=== PATIENT | female | born 1995 | race Caucasian/White ===

== ENCOUNTER 2018-05-22 15:20 | Outpatient (CLI) | payer OTHER ==
[2018-05-22 16:03] LABS: ADD MAN DIFF? NO
[2018-05-22 16:06] LABS: BASOPHILS % 0.4 % (0.0-2.0); EOSINOPHILS # 0.6 10^3/ul (0.0-0.5); HEMATOCRIT 37.2 % (37.0-47.0); LYMPHOCYTES # 1.8 10^3/ul (0.8-2.9); LYMPHOCYTES % 19.9 % (18.0-55.0); MEAN CORPUSCULAR HEMOGLOBIN 26.8 pg (29.0-33.0); MEAN CORPUSCULAR HGB CONC 32.3 g/dl (32.0-37.0); MEAN CORPUSCULAR VOLUME 83.2 fl (72.0-104.0); MEAN PLATELET VOLUME 9.6 fl (7.4-10.4); MONOCYTE # 0.9 10^3/ul (0.3-0.9); MONOCYTES % 10.2 % (0.0-13.0); NEUTROPHIL # 5.8 10^3/ul (1.6-7.5); NEUTROPHILS % 62.3 % (30.0-74.0); PLATELET COUNT 281 10^3/UL (140-415); RED BLOOD COUNT 4.47 10^6/ul (4.20-5.40)
[2018-05-22 16:06] LABS: WHITE BLOOD COUNT 9.2 10^3/ul (4.8-10.8)
[2018-05-22 16:17] LABS: ADD UMIC NO; UR ASCORBIC ACID 40 mg/dL (NEGATIVE); UR BACTERIA FEW /HPF (NONE SEEN); UR BILIRUBIN (Dip) NEGATIVE (NEGATIVE); UR BLOOD (Dip) NEGATIVE (NEGATIVE); UR CLARITY SLIGHTLY CLOUDY (CLEAR); UR COLOR YELLOW (YELLOW); UR GLUCOSE (Dip) 1+ mg/dL (NEGATIVE); UR KETONES (Dip) NEGATIVE (NEGATIVE); UR LEUKOCYTE ESTERASE (Dip) NEGATIVE Leu/ul (NEGATIVE); UR MUCUS FEW /HPF (NONE SEEN); UR NITRITE (Dip) NEGATIVE (NEGATIVE); UR RBC 0 /HPF (0-5); UR SPECIFIC GRAVITY (Dip) 1.023 (1.003-1.030); UR SQUAMOUS EPITHELIAL CELL FEW /HPF (FEW); UR TOTAL PROTEIN (Dip) NEGATIVE (NEGATIVE); UR UROBILINOGEN (Dip) NEGATIVE (NEGATIVE); UR WBC 2 /HPF (0-5)
== END 2018-05-22 17:20 | disposition home or self-care (01) ==
LOC: OBT 15:20 → L-D 15:21 → OBT 17:20
DX: O26.893 Other specified pregnancy related conditions, third trimester (principal); Z3A.29 29 weeks gestation of pregnancy; R10.2 Pelvic and perineal pain
CPT/HCPCS: 76815; 76817; 76818; 81001; 81003; 85025

== ENCOUNTER 2018-06-03 11:35 | Outpatient (CLI) | payer OTHER ==
[2018-06-03] MEDS: LACTATED RINGER'S 1,000 ML IV* (14:11)
[2018-06-03 14:34] LABS: ADD MAN DIFF? NO
[2018-06-03 14:36] LABS: BASOPHILS % 0.5 % (0.0-2.0); EOSINOPHILS # 0.4 10^3/ul (0.0-0.5); EOSINOPHILS % 4.8 % (0.0-7.0); HEMATOCRIT 37.8 % (37.0-47.0); HEMOGLOBIN 12.3 g/dl (12.0-16.0); LYMPHOCYTES # 1.5 10^3/ul (0.8-2.9); LYMPHOCYTES % 18.8 % (18.0-55.0); MEAN CORPUSCULAR HEMOGLOBIN 26.9 pg (29.0-33.0); MEAN CORPUSCULAR HGB CONC 32.5 g/dl (32.0-37.0); MEAN CORPUSCULAR VOLUME 82.5 fl (72.0-104.0); MEAN PLATELET VOLUME 9.9 fl (7.4-10.4); MONOCYTE # 0.8 10^3/ul (0.3-0.9); MONOCYTES % 9.7 % (0.0-13.0); NEUTROPHIL # 5.3 10^3/ul (1.6-7.5); NEUTROPHILS % 65.3 % (30.0-74.0); PLATELET COUNT 295 10^3/UL (140-415); RED BLOOD COUNT 4.58 10^6/ul (4.20-5.40); RED CELL DISTRIBUTION WIDTH 13.9 % (11.5-14.5)
[2018-06-03 14:36] LABS: WHITE BLOOD COUNT 8.2 10^3/ul (4.8-10.8)
[2018-06-03 15:27] LABS: ADD UMIC YES; UR AMORPHOUS CRYSTAL FEW /HPF (NONE SEEN); UR ASCORBIC ACID 40 mg/dL (NEGATIVE); UR BILIRUBIN (Dip) NEGATIVE (NEGATIVE); UR BLOOD (Dip) NEGATIVE (NEGATIVE); UR CLARITY CLOUDY (CLEAR); UR COLOR YELLOW (YELLOW); UR GLUCOSE (Dip) NEGATIVE (NEGATIVE); UR KETONES (Dip) NEGATIVE (NEGATIVE); UR LEUKOCYTE ESTERASE (Dip) NEGATIVE Leu/ul (NEGATIVE); UR MUCUS FEW /HPF (NONE SEEN); UR NITRITE (Dip) NEGATIVE (NEGATIVE); UR RBC 0 /HPF (0-5); UR SPECIFIC GRAVITY (Dip) 1.015 (1.003-1.030); UR SQUAMOUS EPITHELIAL CELL FEW /HPF (FEW); UR TOTAL PROTEIN (Dip) NEGATIVE (NEGATIVE); UR UROBILINOGEN (Dip) NEGATIVE (NEGATIVE); UR WBC 3 /HPF (0-5)
[2018-06-03] MEDS: TERBUTALINE 1 MG/ML INJ SC ×2 (16:45→17:26)
== END 2018-06-03 18:45 | disposition home or self-care (01) ==
LOC: OBT 11:35 → L-D 11:35 → OBT 18:45
DX: O26.893 Other specified pregnancy related conditions, third trimester (principal); Z3A.31 31 weeks gestation of pregnancy; R10.2 Pelvic and perineal pain
CPT/HCPCS: 36415; 76815; 76817; 76818; 81001; 85025; 96360; 96361; 96372

== ENCOUNTER 2018-07-16 16:53 | Outpatient (CLI) | payer OTHER ==
[2018-07-16 17:58] LABS: ADD MAN DIFF? NO
[2018-07-16 18:16] LABS: BASOPHILS % 0.4 % (0.0-2.0); EOSINOPHILS # 0.4 10^3/ul (0.0-0.5); EOSINOPHILS % 5.3 % (0.0-7.0); HEMATOCRIT 38.5 % (37.0-47.0); HEMOGLOBIN 12.4 g/dl (12.0-16.0); LYMPHOCYTES # 1.6 10^3/ul (0.8-2.9); LYMPHOCYTES % 19.3 % (18.0-55.0); MEAN CORPUSCULAR HEMOGLOBIN 26.5 pg (29.0-33.0); MEAN CORPUSCULAR HGB CONC 32.2 g/dl (32.0-37.0); MEAN CORPUSCULAR VOLUME 82.3 fl (72.0-104.0); MEAN PLATELET VOLUME 10.3 fl (7.4-10.4); MONOCYTE # 0.7 10^3/ul (0.3-0.9); MONOCYTES % 8.9 % (0.0-13.0); NEUTROPHIL # 5.3 10^3/ul (1.6-7.5); NEUTROPHILS % 65.1 % (30.0-74.0); PLATELET COUNT 321 10^3/UL (140-415); RED BLOOD COUNT 4.68 10^6/ul (4.20-5.40); RED CELL DISTRIBUTION WIDTH 13.2 % (11.5-14.5)
[2018-07-16 18:16] LABS: WHITE BLOOD COUNT 8.1 10^3/ul (4.8-10.8)
[2018-07-16 18:44] LABS: ADD UMIC YES; UR ASCORBIC ACID NEGATIVE (NEGATIVE); UR BILIRUBIN (Dip) NEGATIVE (NEGATIVE); UR BLOOD (Dip) 2+ mg/dL (NEGATIVE); UR CLARITY CLEAR (CLEAR); UR COLOR YELLOW (YELLOW); UR GLUCOSE (Dip) NEGATIVE (NEGATIVE); UR KETONES (Dip) NEGATIVE (NEGATIVE); UR LEUKOCYTE ESTERASE (Dip) TRACE Leu/ul (NEGATIVE); UR MUCUS FEW /HPF (NONE SEEN); UR NITRITE (Dip) NEGATIVE (NEGATIVE); UR RBC 0 /HPF (0-5); UR SPECIFIC GRAVITY (Dip) 1.024 (1.003-1.030); UR SQUAMOUS EPITHELIAL CELL FEW /HPF (FEW); UR TOTAL PROTEIN (Dip) NEGATIVE (NEGATIVE); UR UROBILINOGEN (Dip) NEGATIVE (NEGATIVE); UR WBC 1 /HPF (0-5)
== END 2018-07-16 19:00 | disposition home or self-care (01) ==
LOC: OBT 16:53 → L-D 16:54 → OBT 19:00
DX: O47.1 False labor at or after 37 completed weeks of gestation (principal); Z3A.37 37 weeks gestation of pregnancy
CPT/HCPCS: 36415; 76815; 76818; 81001; 85025

== ENCOUNTER 2018-07-18 18:36 | Outpatient (CLI) | payer OTHER | END 2018-07-18 20:42 | disposition home or self-care (01) | LOC: OBT 18:36 → L-D 18:36 → OBT 20:42 | DX: O36.8330 Maternal care for abnormalities of the fetal heart rate or rhythm, third trimester, not applicable or unspecified (principal); Z3A.37 37 weeks gestation of pregnancy | CPT/HCPCS: 76818 ==

== ENCOUNTER 2018-07-20 18:43 | Outpatient (CLI) | payer OTHER | END 2018-07-20 20:59 | disposition home or self-care (01) | LOC: OBT 18:43 → L-D 18:44 → OBT 20:59 | DX: O36.8330 Maternal care for abnormalities of the fetal heart rate or rhythm, third trimester, not applicable or unspecified (principal); Z3A.38 38 weeks gestation of pregnancy | CPT/HCPCS: 76818 ==

== ENCOUNTER 2018-07-23 19:28 | Outpatient (CLI) | payer OTHER ==
[2018-07-23 20:17] LABS: ADD UMIC NO; UR ASCORBIC ACID 20 mg/dL (NEGATIVE); UR BILIRUBIN (Dip) NEGATIVE (NEGATIVE); UR BLOOD (Dip) NEGATIVE (NEGATIVE); UR CLARITY CLEAR (CLEAR); UR COLOR YELLOW (YELLOW); UR GLUCOSE (Dip) NEGATIVE (NEGATIVE); UR KETONES (Dip) TRACE mg/dL (NEGATIVE); UR LEUKOCYTE ESTERASE (Dip) NEGATIVE Leu/ul (NEGATIVE); UR NITRITE (Dip) NEGATIVE (NEGATIVE); UR SPECIFIC GRAVITY (Dip) 1.027 (1.003-1.030); UR TOTAL PROTEIN (Dip) NEGATIVE (NEGATIVE); UR UROBILINOGEN (Dip) NEGATIVE (NEGATIVE)
== END 2018-07-23 22:40 | disposition home or self-care (01) ==
LOC: OBT 19:28 → L-D 19:29 → OBT 22:40
DX: O62.9 Abnormality of forces of labor, unspecified (principal); Z3A.38 38 weeks gestation of pregnancy
CPT/HCPCS: 76815; 76818; 81003; 87086

== ENCOUNTER 2018-07-28 20:40 | Inpatient (IN) | payer OTHER ==
[2018-07-28] MEDS ORDERED: OXYTOCIN 30 UNITS/LR 500 ML IV (21:00)
[2018-07-28] MEDS ORDERED: CARBOPROST 250 MCG INJ IM (21:00)
[2018-07-28] MEDS ORDERED: LIDOCAINE 1% (MPF) 30 ML INJ INJ (21:00)
[2018-07-28] MEDS ORDERED: MISOPROSTOL 200 MCG TAB PR (21:00)
[2018-07-28] MEDS ORDERED: IBUPROFEN 600 MG TAB PO (21:00)
[2018-07-28] MEDS ORDERED: BUTORPHANOL 2 MG INJ IV (21:00)
[2018-07-28] MEDS ORDERED: METHYLERGONOVINE 0.2 MG INJ IM (21:00)
[2018-07-28 21:33] LABS: ADD MAN DIFF? NO
[2018-07-28 21:36] LABS: BASOPHILS % 0.3 % (0.0-2.0); EOSINOPHILS # 0.1 10^3/ul (0.0-0.5); EOSINOPHILS % 0.7 % (0.0-7.0); HEMATOCRIT 40.9 % (37.0-47.0); HEMOGLOBIN 13.2 g/dl (12.0-16.0); LYMPHOCYTES # 1.3 10^3/ul (0.8-2.9); LYMPHOCYTES % 9.5 % (18.0-55.0); MEAN CORPUSCULAR HEMOGLOBIN 26.2 pg (29.0-33.0); MEAN CORPUSCULAR HGB CONC 32.3 g/dl (32.0-37.0); MEAN CORPUSCULAR VOLUME 81.2 fl (72.0-104.0); MEAN PLATELET VOLUME 10.2 fl (7.4-10.4); MONOCYTE # 0.5 10^3/ul (0.3-0.9); MONOCYTES % 3.6 % (0.0-13.0); NEUTROPHIL # 11.4 10^3/ul (1.6-7.5); NEUTROPHILS % 85.1 % (30.0-74.0); PLATELET COUNT 303 10^3/UL (140-415); RED BLOOD COUNT 5.04 10^6/ul (4.20-5.40); RED CELL DISTRIBUTION WIDTH 14.2 % (11.5-14.5)
[2018-07-28 21:36] LABS: WHITE BLOOD COUNT 13.4 10^3/ul (4.8-10.8)
[2018-07-28] MEDS: LACTATED RINGER'S 1,000 ML IV ×2 (21:47→22:49)
[2018-07-28] MEDS: AMPICILLIN 2 GM/NS (PMX) 100 ML IV (21:47)
[2018-07-28 21:57] LABS: INR 0.88; PARTIAL THROMBOPLASTIN TIME 23.5 Sec (23.0-35.0); PT RATIO 0.9
[2018-07-28] MEDS ORDERED: NALOXONE (0.4 MG/ML) INJ IV (22:00)
[2018-07-28] MEDS ORDERED: FENTAnyl 2MCG/ML-ROPIV 0.2% 100 ML BAG EPI (22:00)
[2018-07-29] MEDS: AMPICILLIN 1 GM/NS (PMX) 50 ML IV (01:19)
[2018-07-29] MEDS: OXYTOCIN 30 UNITS/LR 500 ML IV ×2 (02:00→02:19)
[2018-07-29] MEDS ORDERED: DEXTROSE 5%-LR 1,000 ML IV (02:57)
[2018-07-29] MEDS ORDERED: ZOLPIDEM 5 MG TAB PO (03:00)
[2018-07-29] MEDS ORDERED: MISOPROSTOL 200 MCG TAB PR (03:00)
[2018-07-29] MEDS ORDERED: CARBOPROST 250 MCG INJ IM (03:00)
[2018-07-29] MEDS ORDERED: ACETAMINOPHEN 325 MG TAB PO (03:00)
[2018-07-29] MEDS ORDERED: DIBUCAINE 1% 30 GM OINT TOP (03:00)
[2018-07-29] MEDS ORDERED: ONDANSETRON 4 MG INJ IV (03:00)
[2018-07-29] MEDS ORDERED: METHYLERGONOVINE 0.2 MG INJ IM (03:00)
[2018-07-29] MEDS ORDERED: DIPHENHYDRAMINE 50 MG INJ IV (03:00)
[2018-07-29] MEDS ORDERED: OXYTOCIN 30 UNITS/LR 500 ML IV (03:00)
[2018-07-29] MEDS: IBUPROFEN 600 MG TAB PO ×4 (05:35→23:44)
[2018-07-29] MEDS: LANOLIN HPA 1 PKT TOP (05:36)
[2018-07-29] MEDS: WITCH HAZEL/GLYCERIN PAD PR (05:36)
[2018-07-29] MEDS: BENZOCAINE 20% 56 ML SPRAY TOP (05:36)
[2018-07-29] MEDS: LACTATED RINGER'S 1,000 ML IV* ×3 (06:14→18:57)
[2018-07-29] MEDS ORDERED: BISACODYL 10 MG SUPP PR (13:30)
[2018-07-29] MEDS ORDERED: MAGNESIUM HYDROXIDE 30ML CUP PO (13:30)
[2018-07-29 15:41] LABS: RAPID PLASMA REAGIN NONREACTIVE (NR)
[2018-07-29] MEDS: SENNA/DOCUSATE NA (8.6MG/50MG) TAB PO (21:05)
[2018-07-30] MEDS: LACTATED RINGER'S 1,000 ML IV* ×2 (02:57→10:13)
[2018-07-30] MEDS: IBUPROFEN 600 MG TAB PO ×2 (06:00→11:53)
[2018-07-30] MEDS: OXYCODONE/ASPIRIN (4.88/325) TAB PO (07:47)
[2018-07-30 08:26] LABS: ADD MAN DIFF? NO
[2018-07-30 08:37] LABS: WHITE BLOOD COUNT 11.4 10^3/ul (4.8-10.8)
[2018-07-30 08:37] LABS: BASOPHIL # 0.1 10^3/ul (0.0-0.1); BASOPHILS % 0.6 % (0.0-2.0); EOSINOPHILS # 0.5 10^3/ul (0.0-0.5); EOSINOPHILS % 4.1 % (0.0-7.0); HEMATOCRIT 36.5 % (37.0-47.0); HEMOGLOBIN 11.7 g/dl (12.0-16.0); LYMPHOCYTES # 2.9 10^3/ul (0.8-2.9); LYMPHOCYTES % 25.2 % (18.0-55.0); MEAN CORPUSCULAR HEMOGLOBIN 26.8 pg (29.0-33.0); MEAN CORPUSCULAR HGB CONC 32.1 g/dl (32.0-37.0); MEAN CORPUSCULAR VOLUME 83.5 fl (72.0-104.0); MEAN PLATELET VOLUME 10.4 fl (7.4-10.4); MONOCYTE # 0.8 10^3/ul (0.3-0.9); MONOCYTES % 7.2 % (0.0-13.0); NEUTROPHIL # 7.1 10^3/ul (1.6-7.5); PLATELET COUNT 262 10^3/UL (140-415); RED BLOOD COUNT 4.37 10^6/ul (4.20-5.40); RED CELL DISTRIBUTION WIDTH 14.4 % (11.5-14.5)
[2018-07-31] MEDS ORDERED: DIPHTH/TET/ACEL PERTUSS (ADULT) 0.5 ML VIAL IM* (09:00)
[2018-07-31] MEDS ORDERED: MEASLES,MUMPS,RUBELLA VACCINE INJ SC* (09:00)
== END 2018-07-30 15:40 | disposition home or self-care (01) | DRG 807 ==
LOC: OBT 20:40 → PP1 07-29 03:32 → L-D 20:41 → OBT 20:55 → L-D 20:55 → PP1 07-29 03:50
PROVIDERS: Obstetrics & Gynecology
PROC: 10E0XZZ Delivery of Products of Conception, External Approach (ICD-10-PCS; principal; 2018-07-28)
PROC: 0KQM0ZZ Repair Perineum Muscle, Open Approach (ICD-10-PCS; 2018-07-28)
PROC: 3E033VJ Introduction of Other Hormone into Peripheral Vein, Percutaneous Approach (ICD-10-PCS; 2018-07-28)
DX: O71.4 Obstetric high vaginal laceration alone (principal); Z37.0 Single live birth; Z3A.39 39 weeks gestation of pregnancy
CPT/HCPCS: 62319; 85025; 85610; 85730; 86592; 86850; 86900; 86901